=== PATIENT | female | born 1945 | race Caucasian/White ===

== ENCOUNTER → 2017-04-16 | Outpatient (CLI) | payer OTHER ==
[~2017-04-16] MED LIST: ATEN50TA41 PO; CALC-126 PO; CHOL20002 PO; CYCL-259 PO
== END | disposition home or self-care (01) ==
LOC: RAD 08:40
PROVIDERS: ATTEND Specialist
DX: M41.86 Other forms of scoliosis, lumbar region (principal); M51.36 Other intervertebral disc degeneration, lumbar region; M12.88 Other specific arthropathies, not elsewhere classified, other specified site; G89.29 Other chronic pain
CPT/HCPCS: 72100; 72170

== ENCOUNTER → 2018-02-05 | Outpatient (CLI) | payer OTHER | LOC: CFH 12:22 | PROVIDERS: ATTEND Physical Medicine & Rehabilitation | DX: M51.16 Intervertebral disc disorders with radiculopathy, lumbar region (principal); M47.816 Spondylosis without myelopathy or radiculopathy, lumbar region | CPT/HCPCS: 72148 ==